=== PATIENT | male | born 1950 | race Caucasian/White ===

== ENCOUNTER 2017-08-06 10:59 | Day surgery (SDC) | payer MEDICARE, OTHER ==
[~2017-08-06] VITALS: Ht 180.3 cm; Wt 89.1 kg
[2017-08-06] MEDS ORDERED: ATOR1TAB21 (11:21)
[2017-08-06] MEDS ORDERED: HYDR-3713 (11:21)
[2017-08-06] MEDS ORDERED: FLOM5CAP (11:21)
[2017-08-06] MEDS ORDERED: LUTE10TA PO (11:21)
[2017-08-06] MEDS ORDERED: CIPR500T3 (11:21)
[2017-08-06] MEDS ORDERED: FISH1000 PO (11:21)
[2017-08-06] MEDS ORDERED: ONDANSETRON 4MG/2ML VIAL (J2405) IV ONE (11:45)
[2017-08-06] MEDS ORDERED: KETOROLAC 30 MG/ML VIAL (J1885) IV ONE (11:45)
[2017-08-06] MEDS ORDERED: NS 1,000 ML IV ONE (11:45)
[2017-08-06 12:17] LABS: BASO % 0.4 % (0.0-1.0); EOS # 0.1 10^3/uL (0.0-0.50); EOS % 1.2 % (0.0-3.0); IMMATURE GRANULOCYTE % 0.2 % (0-0); LYMPH # 1.4 10^3/uL (1.5-4.5); MEAN CORPUSCULAR HEMOGLOBIN 31.9 pg (27.0-33.0); MEAN CORPUSCULAR HGB CONC 34.3 g/dl (32.0-36.5); MEAN CORPUSCULAR VOLUME 93.2 fl (80.0-96.0); MONO # 0.7 10^3/uL (0.0-0.8); MONO % 11.5 % (0.0-5.0); NEUTROPHILS # 3.5 10^3/uL (1.8-7.7); NEUTROPHILS % 61.7 % (36.0-66.0); PLATELET COUNT, AUTOMATED 173 10^3/uL (150-450); WHITE BLOOD COUNT 5.7 10^3/uL (4.0-10.0)
[2017-08-06 12:36] LABS: ALBUMIN 3.8 GM/DL (3.2-5.2); ALBUMIN/GLOBULIN RATIO 1.03 (1.00-1.93); BILIRUBIN,DIRECT 0.2 MG/DL (0.0-0.2); BILIRUBIN,TOTAL 0.7 MG/DL (0.2-1.0); CREATININE FOR GFR 1.57 MG/DL (0.70-1.30); GLOMERULAR FILTRATION RATE 46.9 (>49); POTASSIUM SERUM 3.7 MEQ/L (3.5-5.1); TOTAL PROTEIN 7.5 GM/DL (6.4-8.2)
[2017-08-06 12:50] LABS: ADD MANUAL DIFFER NO; DIFF SLIDE NUMBER 138
--- NOTE | 2017-08-06 14:55 | REP ---
REASON: Right renal colic. PRIORS: None. The lung bases are clear. Limited evaluation of the solid intra-abdominal organs show no gross abnormalities. Limited evaluation of the pancreas and adrenal glands show no gross abnormalities. There is mild to moderate right-sided hydronephrosis and hydroureter, which can be followed throughout its course. Within the urinary bladder just to the right of the midline, there is a 7 mm size calcification consistent with a passed ureterolith. There are two tiny calcifications in the right kidney, neither of which are causing obstructive phenomenon. There are multiple left nephroliths. There is no left-sided hydronephrosis or hydroureter and there are no left ureteroliths. Limited evaluation of the abdominal aorta and para-aortic regions show no gross abnormalities. Note is made of a hiatal hernia. There is no free fluid or free air in the abdomen or pelvis. Limited evaluation of the intra-abdominal and intrapelvic bowel loops and their mesenteries show no gross abnormalities. Bone window technique throughout the exam shows the osseous structures to be within normal limits for the patient's age. IMPRESSION: 1. Right-sided hydronephrosis and hydroureter secondary to a passed ureterolith now representing a calcification within the urinary bladder as described above. 2. Bilateral renal calculi as described above. 3. Other findings as described above. Signed by Moshe Osborne DO 08/06/2017 03:00 P
[2017-08-06] MEDS ORDERED: CIPROFLOXACIN/D5W 400 MG/200 ML BAG (J0744) As Ordered ONE (16:52)
[2017-08-06] MEDS ORDERED: CONRAY-60 60% 50ML VIAL (Q9961) As Ordered ONE (17:02)
[2017-08-06] MEDS ORDERED: ONDANSETRON 4MG/2ML VIAL (J2405) As Ordered ONE (17:37)
[2017-08-06] MEDS ORDERED: LIDOCAINE 2% INJ 100 MG/5 ML SDV (FOR ANES.) As Ordered ONE (17:37)
[2017-08-06] MEDS ORDERED: dexameTHASONE 4 MG/ML 1ML VIAL (J1100) As Ordered ONE (17:37)
[2017-08-06] MEDS ORDERED: fentaNYL 100 MCG/2 ML INJECTION (J3010) As Ordered ONE (17:37)
[2017-08-06] MEDS ORDERED: PROPOFOL 200 MG/20 ML VIAL As Ordered ONE (17:37)
[2017-08-06] MEDS ORDERED: LR 1,000 ML IV SCH (18:15)
[2017-08-06] MEDS ORDERED: fentaNYL 100 MCG/2 ML INJECTION (J3010) IV PRN (18:15)
[2017-08-06] MEDS ORDERED: PERCOCET 5MG/325MG TAB PO PRN ×2 (18:15→18:30)
[2017-08-06 18:30] VITALS: BP 156/81
[2017-08-06] MEDS ORDERED: ONDANSETRON 4MG/2ML VIAL (J2405) IV PRN (18:30)
[2017-08-06] MEDS ORDERED: D5W/0.45% SODIUM CHLORIDE 1,000 ML IV SCH (18:30)
[2017-08-06 19:00] VITALS: BP 152/81
[2017-08-06 20:00] VITALS: BP 160/86
--- NOTE | 2017-08-06 20:47 | HPEPDOC ---
General Date of Admission Attending Physician: YASMINE VELÁSQUEZ MD Chief Complaint The patient is a 67-year-old male admitted with a reason for visit of R Uretal Stone. History of Present Illness Mr. Brito this is a 67-year-old male who presented to the [facility] emergency department on 08/06/2017 complaining of right flank pain. He had been seen by his primary care physician in the prior week for similar symptoms. His primary care doctor had diagnosed him with a right ureteral stone and prescribed him Flomax and Cipro. He had been taking these but continued to have episodic right flank pain. A CAT scan was done in the emergency department and demonstrated an approximately 7 mm stone at the right ureterovesical junction. After the position of the stone was further confirmed by ultrasound the patient was counseled on the various treatment options going forward including an ongoing trial of medical expulsive therapy as well as various surgical options. The patient elected to proceed to surgical management. Home Medications Scheduled (Lutein) 10 Mg Tab, 10 MG PO DAILY, (Reported) Fish Oil (Fish Oil) 1,000 Mg Cap, 1,000 MG PO DAILY, (Reported) Miscellaneous Medications Acetaminophen/Hydrocodone (Hydrocodone/Acetaminophen 5-325 mg) 1 Tab Tab, ( Reported) Atorvastatin Calcium (Atorvastatin Calcium) 20 Mg Tab, (Reported) Ciprofloxacin HCl (Ciprofloxacin HCl) 500 Mg Tab, (Reported) Tamsulosin Hydrochloride (Flomax) 0.4 Mg Cap, (Reported) Allergies Coded Allergies: Amoxicillin (Verified Allergy, Intermediate, 08/06/17) Clavulanic Acid (Verified Allergy, Intermediate, 08/06/17) Past Medical History Medical History Arthritis, history of hepatitis, hypercholesterolemia, GERD Surgical History Tonsillectomy, gallbladder surgery, hernia repair, exploratory laparotomy for volvulus. Family History Significant Family History: No pertinent family hx Social History * Smoker: former Smoker Alcohol: occationally Review of Symptoms Constitutional: Denies: Chills, Fever, Night Sweats Eyes: Denies: Pain, Vision change ENT: Denies: Head Aches, Ear Pain, Dysphagia Skin: Denies: Rash, Lesions, Breakdown Pulmonary: Denies: Dyspnea, Cough Cardiovascular: Denies: Chest Pain, Palpitations, Orthopnea, Paroxysmal Noc. Dyspnea, Lt Headedness Gastrointestinal: Reports: Nausea, Denies: Vomiting, Abdominal Pain, Diarrhea Genitourinary: Reports: Hematuria, Denies: Dysuria, Frequency, Incontinence, Retention Hematologic: Denies: Bruising, Bleeding Excessively Musculoskeletal: Denies: Neck Pain, Back Pain, Joint Pain, Muscle Pain, Spasms Neurological: Denies: Weakness, Numbness, Change in speech, Confusion Psych: Reports: Mood Normal, Denies: Depression, Memory Issues Physical Examination General Exam: Positive: Alert, No Acute Distress Eye Exam: Positive: PERRLA, Conjunctiva & lids normal, EOMI, Negative: Sclera icteric ENT Exam: Positive: Atraumatic, Mucous membr. moist/pink, Pharynx Normal Neck Exam: Positive: Supple, Negative: JVD, thyromegaly Chest Exam: Positive: Clear to auscultation, Normal air movement Heart Exam: Positive: Rate Normal, Regular Rhythm, Normal S1, Normal S2, Negative: Murmurs, Rubs Telemetry: Positive: No significant arrhythmia Abdomen Exam: Positive: Normal bowel sounds, Soft, Negative: Tenderness, Hepatospenomegaly Extremity Exam: Positive: Normal pulses, Negative: Clubbing, Cyanosis, Edema Skin Exam: Positive: Nl turgor and temperature, Negative: Breakdown, Lesion Neuro Exam: Positive: Normal Gait, Normal Speech, Cranial Nerves 3-12 NL, Reflexes 2+ Psych Exam: Positive: Mental status NL, Mood NL, Oriented x 3 Vital Signs Vital Signs Date Time Temp Pulse Resp B/P (MAP) Pulse Ox O2 Delivery O2 Flow Rate FiO2 08/06/17 19:00 97.7 68 18 152/81 (104) 97 Room Air Laboratory Data Labs 24H Laboratory Tests 2 08/06/17 11:38: Urine Appearance CLEAR, Urine Color YELLOW, Urine pH 5.0, Urine Specific [place] 1.008, Urine Protein NEGATIVE, Urine Glucose (UA) NEGATIVE, Urine Ketones NEGATIVE, Urine Urobilinogen 0.2, Urine Bilirubin NEGATIVE, Urine Leukocyte Esterase NEGATIVE, Urine Blood 3+H, Urine Nitrite NEGATIVE, Urine WBC (Auto) 3, Urine RBC (Auto) 5H, Urine Hyaline Casts (Auto) 0, Urine Bacteria ( Auto) NEGATIVE, Urine Squamous Epithelial Cells 0, Urine Mucus (Auto) SMALL, Urine Sperm (Auto) 08/06/17 11:55: Immature Granulocyte % (Auto) 0.2H, White Blood Count 5.7, Red Blood Count 4.54 , Hemoglobin 14.5, Hematocrit 42.3, Mean Corpuscular Volume 93.2, Mean Corpuscular Hemoglobin 31.9, Mean Corpuscular Hemoglobin Concent 34.3, Red Cell Distribution Width 12.0, Platelet Count 173, Neutrophils (%) (Auto) 61.7, Lymphocytes (%) (Auto) 25.0, Monocytes (%) (Auto) 11.5H, Eosinophils (%) (Auto) 1.2, Basophils (%) (Auto) 0.4, Neutrophils # (Auto) 3.5, Lymphocytes # (Auto) 1.4L, Monocytes # (Auto) 0.7, Eosinophils # (Auto) 0.1, Basophils # (Auto) 0.0, Immature Granulocyte # (Auto) 0.0, Nucleated Red Blood Cells % (auto) 0.0, Anion Gap 7L, Glomerular Filtration Rate 46.9L, Calcium Level 9.0, Aspartate Amino Transf (AST/SGOT) 12L, Alanine Aminotransferase (ALT/SGPT) 24, Alkaline Phosphatase 64, Total Bilirubin 0.7, Direct Bilirubin 0.2, Total Protein 7.5, Albumin 3.8, Albumin/Globulin Ratio 1.03, Amylase Level 50, Lipase 161 CBC/BMP Laboratory Tests 08/06/17 11:55 Red Blood Count 4.54, Mean Corpuscular Volume 93.2, Mean Corpuscular Hemoglobin 31.9, Mean Corpuscular Hemoglobin Concent 34.3, Red Cell Distribution Width 12.0 , Neutrophils (%) (Auto) 61.7, Lymphocytes (%) (Auto) 25.0, Monocytes (%) (Auto ) 11.5 H, Eosinophils (%) (Auto) 1.2, Basophils (%) (Auto) 0.4, Neutrophils # ( Auto) 3.5, Lymphocytes # (Auto) 1.4 L, Monocytes # (Auto) 0.7, Eosinophils # ( Auto) 0.1, Basophils # (Auto) 0.0 Microbiology Microbiology 08/06/17 Urine Culture, Received Pending Assessment/Plan Symptomatic distal right ureteral stone s/p failed trial of medical expulsive therapy Plan / VTE VTE Prophylaxis Ordered?: Yes VTE Exclusion Pharmacological: Bleeding Risk Plan Plan 1. Admit to urology for 23 hr observation / same day care. 2. NPO. 3. to OR when available for: cystoscopy, right retrograde pyelogram, right ureteral stent placement, possible right ureteroscopy and laser lithotripsy. 4. Likely discharge to home after procedure. YASMINE VELÁSQUEZ MD Aug 06, 2017 20:47
--- NOTE | 2017-08-06 20:55 | ROOPDOC ---
[facility] Report Of Operation Report of Operation DATE OF PROCEDURE: 08/06/17 PREPROCEDURE DIAGNOSES: Distal right ureteral stone. POSTPROCEDURE DIAGNOSES: Distal right ureteral stone. PROCEDURE: Cystoscopy with stone basketing, right ureteral stent placement. SURGEON: Yasmine Hernandez MD [employer]: pathology lab technician ANESTHESIA: Gen. endotracheal. ESTIMATED BLOOD LOSS: Minimal COMPLICATIONS: None. REMARKS: Distal right ureteral stone visibly protruding out of ureteral orifice- - removed. JUSTIFICATION FOR PROCEDURE: This patient is a 67-year-old male who presented to the [facility] emergency department and was found to have an approximately 7 mm stone in his distal right ureter. The urology service was consulted. The patient was counseled on the various treatment options going forward including a further trial of passage with medical expulsive therapy, as well as various surgical modalities. The patient elected to proceed to the above described procedures. Full written informed consent was obtained. DESCRIPTION OF PROCEDURE: After being evaluated by the anesthesia service the patient was transferred to the operating room. General endotracheal anesthesia was initiated and the patient was placed into the dorsal lithotomy position. Timeout was performed. He had already received ciprofloxacin as surgical prophylaxis. his genitalia was prepped and draped in the usual sterile manner. We began the procedure by advancing a 22.5 [place] rigid cystoscope through the urethra into the bladder. The urethra and interior of the bladder appeared generally normal. Bilateral ureteral orifices were visualized and orthotopic position. A stone was visualized protruding out of the right ureteral orifice. A basket was advanced to the cystoscope and used to grab the stone. The stone was removed and sent for composition analysis. A 5 [place] open-ended ureteral catheter was advanced through the cystoscope and used to cannulate the right ureteral orifice. Contrast was then injected through the ureteral catheter and up the right ureter in a retrograde manner. Simultaneous fluoroscopic imaging demonstrated a normal-appearing ureter and right renal collecting system. A sensor wire was then advanced through the ureteral catheter and up into the right kidney. The catheter was backed off the wire leaving the wire in place. A 6 [place] multilength ureteral stent was then advanced over the wire through the cystoscope and up the right ureter under fluoroscopic guidance. When it was in good position the wire was removed. The stent was confirmed to be properly placed. The string was right on the stent and coming out of the urethra. The bladder was drained and the stent string was secured to the penis with a Tegaderm dressing. The patient was placed back into the supine position. Anesthesia was discontinued and the patient was transferred to the postoperative care unit. He had been hemodynamically stable throughout the entire case. PLAN: The patient will be discharged home today. He has been instructed to follow up with Dr. Mcmanus or Dr. Herman in the next 3-7 days for stent removal and to discuss stone prevention strategies. He already has prescriptions for Cipro to be taken as prophylactic antibiotics for the next several days, as well as percocet in case he has further pain and flomax for stent pain. YASMINE HERNANDEZ MD Aug 06, 2017 20:55
[2017-08-06 21:00] VITALS: BP 156/86
[2017-08-06] MEDS ORDERED: MIDAZOLAM INJ 2 MG/2 ML VIAL (J2250) As Ordered ONE (21:25)
[2017-08-06 22:00] VITALS: BP 150/78
--- NOTE | 2017-08-07 11:39 | REP ---
REASON: History of renal calculi. The right kidney measures 11.7 x 6.4 x 6.5 cm. The left measures 10.6 x 4.6 x 6 cm. There is mild right-sided hydronephrosis with the imaged portion of the right ureter being mildly dilated. The left kidney is normal. Seen at the region of the ureterovesical junction, ultrasound shows acoustic shadowing consistent with a calculus. There is no color flow phenomena arising from the right ureterovesical junction and the calculus most probably resides within the ureterovesical junction itself or is approximating itself closely to it. Suffices to say, no definite color flow phenomena is seen at the region. Color flow phenomena is seen on the left. IMPRESSION: As above. Signed by Moshe Osborne DO 08/07/2017 09:45 A
--- NOTE | 2017-08-07 11:39 | REP ---
Fluoroscopy provided to Dr. Hernandez during right-sided double J stent catheter placement. Fluoroscopy time 3 seconds. Imaged count: 4. There is a double J stent catheter on the right, the proximal portion in the region of the renal pelvis and the distal in the urinary bladder. Signed by Moshe Osborne DO 08/07/2017 09:46 A
[2017-08-18 14:20] LABS: Size 6x5x4 mm (.)
== END 2017-08-06 22:20 | disposition home or self-care (01) ==
LOC: M ED 10:59 → M OROP 16:17 → M PED 18:15 → M OROP 22:20
PROVIDERS: ATTEND Urology Pediatric Urology
DX: N20.1 Calculus of ureter (principal); E78.5 Hyperlipidemia, unspecified; Z88.1 Allergy status to other antibiotic agents; Z79.899 Other long term (current) drug therapy
CPT/HCPCS: 36415; 52332; 52352; 74176; 74420; 76775; 80048; 80076; 81001; 82150; 82360; 83690; 85025; 87086; 88300; 96374; 96375; 99284; C1769; C2617; J0744; J1100; J1885; J2250; J2405; J3010; Q9961

== ENCOUNTER → 2018-03-16 | Outpatient (CLI) | payer MEDICARE, OTHER | LOC: M SMT 09:53 | DX: N20.0 Calculus of kidney (principal); Z98.890 Other specified postprocedural states | CPT/HCPCS: 74018; G0463 ==

== ENCOUNTER 2018-07-12 15:45 | Emergency (ER) | payer MEDICARE, OTHER | END 2018-07-12 18:49 | disposition home or self-care (01) | LOC: M ED 15:45 | DX: D18.09 Hemangioma of other sites (principal); M51.36 Other intervertebral disc degeneration, lumbar region; K21.9 Gastro-esophageal reflux disease without esophagitis; N40.0 Benign prostatic hyperplasia without lower urinary tract symptoms; Z86.19 Personal history of other infectious and parasitic diseases; I51.7 Cardiomegaly; Z87.891 Personal history of nicotine dependence; Z79.82 Long term (current) use of aspirin; Z79.899 Other long term (current) drug therapy; Z88.0 Allergy status to penicillin | CPT/HCPCS: 72131 ==

== ENCOUNTER → 2020-05-19 | Outpatient (CLI) | payer SELFPAY ==
[~2020-05-19] MED LIST: ASPI81TA26 PO; ATOR1TAB21; CIPR500T3; FISH1000 PO; FLOM0.4C39; HYDR-3713; LUTE10TA PO
== END ==
LOC: M LABSMTC 12:31
PROVIDERS: ATTEND Pediatrics
DX: Z20.818 Contact with and (suspected) exposure to other bacterial communicable diseases (principal); Z11.59 Encounter for screening for other viral diseases

== ENCOUNTER → 2025-03-13 | Outpatient (REF) | payer MEDICARE, OTHER ==
[~2025-03-13] MED LIST changes: -FLOM0.4C39; +TAMS-18
== END ==
LOC: M LAB REF 15:34
PROVIDERS: ATTEND Surgery
DX: D03.59 Melanoma in situ of other part of trunk (principal)

== ENCOUNTER → 2025-03-18 | Outpatient (CLI) | payer MEDICARE, OTHER | LOC: M WUC 10:20 | PROVIDERS: ATTEND Internal Medicine | DX: R06.02 Shortness of breath (principal) ==

== ENCOUNTER → 2025-06-12 | Outpatient (CLI) | payer MEDICARE, OTHER | LOC: M PLAIMG 08:27 | PROVIDERS: ATTEND Physician Assistant | DX: I08.0 Rheumatic disorders of both mitral and aortic valves (principal); R00.1 Bradycardia, unspecified; I37.1 Nonrheumatic pulmonary valve insufficiency; I77.810 Thoracic aortic ectasia ==